=== PATIENT | female | born 2000 | race Caucasian/White ===

== ENCOUNTER 2024-12-05 18:28 | Emergency (ER) | payer OTHER, SELFPAY ==
[2024-12-05 18:31] VITALS: BP 127/90
[2024-12-05 21:14] VITALS: BMI 22.7
[2024-12-05 21:31] LABS: % Basophils 0.6 % (0-2); % Eosinophils 0.5 % (0-6); % Immature Granulocytes 0.2 % (0-0.5); % Lymphocytes 27.9 % (20.5-51.1); % Monocytes 5.8 % (1.7-9.3); Absolute Lymphocytes 1.7 10^3/uL (1.2-3.4); Absolute Monocytes 0.4 10^3/uL (0.1-0.6); Hematocrit 39.1 % (37.0-47.0); Hemoglobin 13.5 g/dL (12.0-16.0); Mean Corp Hgb Conc. 34.5 g/dL (33.0-37.0); Mean Corpuscular Volume 86.9 fL (81.0-99.0); Mean Platelet Volume 10.3 fL (7.4-10.4); Nucleated Red Blood Cells % 0 %; Platelet Count 232 10^3/uL (130-400); Red Cell Dist. Width 12.3 % (11.5-14.5); White Blood Cell Count 6.2 10^3/uL (4.8-10.8)
[2024-12-05 21:41] LABS: HCG, Serum Qualitative Screen Negative
[2024-12-05 21:44] LABS: ALT (SGPT) 14 U/L (0-35); AST (SGOT) 19 U/L (14-36); Albumin 4.2 g/dl (3.5-5.0); Alkaline Phosphatase 75 U/L (38-126); Blood Urea Nitrogen 8 mg/dl (7-17); Calcium 9.9 mg/dl (8.4-10.2); Carbon Dioxide 25 mmol/L (22-30); Chloride 101 mmol/L (98-107); Estimated Creatinine Clearance 123 ml/min; Glucose 113 mg/dl (70-99); Sodium 137 mmol/L (135-145); Total Bilirubin 0.7 mg/dl (0.2-1.3); Total Protein 6.4 g/dl (6.3-8.2); eGFR > 60.00
--- NOTE | 2024-12-05 21:45 | EDRN ---
Crisis in to see patient and offer resources
[2024-12-05 21:46] LABS: Urine Albumin Negative (Neg - Trace); Urine Bilirubin Negative (Negative); Urine Character Clear (Clear); Urine Color Yellow; Urine Glucose Negative (Negative); Urine Ketone Negative (Negative); Urine Leukocyte Negative (Negative); Urine Nitrite Negative (Negative); Urine Occult Blood 4+ (Negative); Urine Urobilinogen Negative (Neg - 1+)
[2024-12-05 21:55] LABS: Urine White Cell 0-2 /HPF (0-5)
[2024-12-05 21:56] LABS: Urine Bacteria Few (Negative)
--- NOTE | 2024-12-05 22:01 | ED.GENMED ---
History of Present Illness
General
Chief Complaint: Crisis Evaluation
Source: patient
Exam Limitations: none
Time Seen by Provider: 12/05/24 20:49
Nursing documentation reviewed up to this point in time: agreed with
History of Present Illness
History of Present Illness:
Patient states she has been dealing with anxiety and depression for many years. She is prescribed Quetiapine, lamotigine, and duloxetine. SHe stopped taking lamotigine and duloxetine a few weeks ago. SHe does not know why she decided to stop
taking her medications. States she has extreme mood swings throughout the day. Symptoms became worse after delivering her child approx 6 mos ago. States baby has special needs and she is staying home to care for him. Came to ED for crisis consult.
She denies SI, HI.
Past History
Past History
ED Past Medical History: Psychiatric (anxiety and depression)
Review of Systems
Review of Systems
Allergies reviewed?: Yes
All Other Systems: ROS reviewed and negative except as documented in HPI and ROS
Constitutional: Reports no symptoms
EENT: Reports no symptoms
Respiratory: Reports no symptoms
Cardiac: Reports no symptoms
ABD/GI: Reports no symptoms
: Reports no symptoms
Musculoskeletal: Reports no symptoms
Skin: Reports no symptoms
Neurological: Reports no symptoms
Psychiatric: Reports depression and anxiety
Phy Exam
General Physical Exam
General Presentation: well appearing and no apparent distress
General age: appears stated age
General Skin: warm and dry
General Habitus: normal
General Mental: alert
Neurological Exam
Neurological Exam: alert, oriented x3, CN II-XII intact, no motor deficits, no sensory deficits, speech normal and normal gait
Musculoskeletal Exam
Musculoskeletal Exam: full ROM and neuro vasc intact
Skin Exam
Skin Exam: normal color, warm/dry and no rash
Psychiatric Exam
Psychiatric Exam: normal mood/affect
Course
Orders/Labs/Results
Orders:
Orders
12/05/24 21:00
Crisis Consult Urgent
Reason for Consult: anxiety/depression
Test Result ONCE
12/05/24 21:10
Complete Blood Count/With Diff Urgent
Comprehensive Metabolic Panel Urgent
HCG, Serum Qualitative Screen Urgent
TSH Reflex To Free T4 Urgent
Urinalysis Reflex To Culture Urgent
Date Specimen was Collected: 12/05/24
Time Specimen was Collected: 21:03
Urine Microscopic Reflex Cult Urgent
Abnormal Lab Results
12/05/24
21:10
Glucose 113 H mg/dl
(70-99)
Ur Occult Blood Reflex 4+ A
(Negative)
Urine RBC 11-15 A /HPF
(0-2)
Urine Bacteria (Reflex) Few A
(Negative)
12/05/24 21:10
12/05/24 21:10
Vital Signs
Initial and Last Documented VS:
Initial Vital Signs
Temp Pulse Resp BP Pulse Ox
98.5 F 109 20 127/90 97
12/05/24 18:31 12/05/24 18:31 12/05/24 18:31 12/05/24 18:31 12/05/24 18:31
Last Documented Vital Signs
Temp Pulse Resp BP Pulse Ox
98.5 F 109 20 127/90 97
12/05/24 18:31 12/05/24 18:31 12/05/24 18:31 12/05/24 18:31 12/05/24 18:31
*Critical Care Note
Total Time (30-74mins, 75-104mins- exclusive of procedures): Not Applicable
Update Note
Update Note:
Patient to ED for crisis consult for ongoing anxiety and depression. Labs reviewed, no concerning findings. VSS. She denies SI, HI. Given referrals by crisis. SHe has been cleared by crisis for disharge.
ED Attending Note
-
Portions of this chart may have been created with voice recognition software.� Occasional wrong word or��sound alike� substitutions may have occurred due to the inherent limitations of voice recognition software.
Discharge Plan
Departure
Patient Disposition: Home (Routine Discharge)
Date of Disposition: 12/05/24
Time of Disposition: 22:00
Patient with high blood pressure during this ER visit?: No
Condition: Good
Covid-19: Not Applicable
Discharge Problem:
Anxiety and depression
Instructions: Depression, Adult (DC), Anxiety, Adult (DC)
Referrals:
Piotr Neville, DO [Family Provider] - Tomorrow
Interventions
Interventions:
*Risk Screen - Suicide Last Done: 12/05/24 18:29
*General Assessment Last Done: 12/05/24 18:31
*Neglect/Abuse Screening Last Done: 12/05/24 21:14
*ED- Fall Risk Assessment Last Done: 12/05/24 21:14
ED-Psychological Assessment Last Done: 12/05/24 21:14
Discharge Date and Time
Print Language: NEPALI
[2024-12-05 22:16] LABS: TSH Reflex To Free T4 < 0.02 uIU/ml (0.47-4.68)
[2024-12-05 23:00] LABS: Free T4 2.38 ng/dl (0.78-2.19)
== END 2024-12-05 22:45 | disposition home or self-care (01) ==
LOC: EMR 18:28
PROVIDERS: Nurse Practitioner; EMERGENCY PHYSICIAN Emergency Medicine; FAMILY PHYSICIAN Family Medicine
DX: F41.8 Other specified anxiety disorders (principal); Z79.899 Other long term (current) drug therapy
CPT/HCPCS: 99283; 80053; 81003; 81015; 84439; 84443; 84703; 85025

== ENCOUNTER 2025-02-21 17:03 | Emergency (ER) | payer MEDICARE, OTHER, SELFPAY ==
[2025-02-21 17:09] VITALS: BP 112/79
[2025-02-21 17:21] VITALS: BP 118/86
[2025-02-21 18:00] VITALS: BP 106/72
[2025-02-21 19:00] VITALS: BP 101/72
--- NOTE | 2025-02-21 19:33 | ED.GENMED ---
History of Present Illness
General
Chief Complaint: Anxiety
Source: patient
Time Seen by Provider: 02/21/25 17:25
History of Present Illness
History of Present Illness:
Note:
CHIEF COMPLAINT(S)
Persistent vomiting and chest tightness associated with anxiety symptoms.
HISTORY OF PRESENT ILLNESS
The patient is a 24-year-old female with a history of significant anxiety and panic attacks, presenting with recurrent episodes of vomiting, chest tightness, and difficulty breathing, which have been ongoing intermittently over the past five to six
years, unchanged from today's symptoms. She describes the episodes with quotes such as feeling like her body is shaking when it is not, and her chest and stomach tightening painfully. These episodes can last up to eight hours. The symptoms subsided
temporarily during her recent , but have recurred since. She experienced her first severe panic attack in 2020. The patient describes a fear of these intense episodes recurring and expresses difficulty managing these symptoms, especially at
night. She has attempted various non-pharmacologic strategies at home without significant relief. The patient does note that she had a cardiac ablation about 13 years ago for SVT and has not had any complications since. She does note experiencing
palpitations at time of the panic attacks but states she is not sure if the palpitations start first or occur after the anxiety/panic attack. Also of note, patient currently on her menstrual, states she does seem to notice symptoms seem to worsen
around the time of her menstrual period
MEDICATIONS
The patient is currently taking Propranolol daily (once in the morning and once at night) for heart symptoms. Quetiapine is used sporadically for panic attacks.
SOCIAL HISTORY
The patient reports daily marijuana use, noting that it sometimes causes her heart to race but does not exacerbate other symptoms. She denies the use of other substances or illicit drugs.
Past History
Past History
ED Past Medical History: Psychiatric (anxiety and depression)
ED Past Surgical History: Cardiac
Social History
Tobacco: Non-smoker
Alcohol: Occasional
Drug: Marijuana
Personal: Single
Living: with family
Review of Systems
Review of Systems
All Other Systems: ROS reviewed and negative except as documented in HPI and ROS
Phy Exam
Physical Exam
Physical Exam:
GENERAL: Alert , in no apparent distress
EYE: conjunctiva clear
NECK: Supple, no significant adenopathy.
ENT: o/p clr, mmm.
CARDIAC: Regular rate and rhythm
LUNGS: Clear breath sounds bilaterally, no acute respiratory distress, no wheezes/rales/rhonchi
NEUROLOGICAL: Alert and oriented
SKIN: Warm and dry, skin intact.
MUSCULOSKELETAL: well perfused.
PSYCH: Normal and appropriate interaction.
Scores
Heart Failure Risk
Heart Failure Risk Score: Not Applicable
Heart Score for Chest Pain Patients
STEMI patient?: Not applicable
Withdrawal Assessment of Alcohol
Withdrawal Assessment Completed?: Not applicable
Course
Orders/Labs/Results
Orders:
Orders
02/21/25 17:43
Crisis Consult Urgent
Reason for Consult: increased anxiety/panic attacks
Vital Signs
Initial and Last Documented VS:
Initial Vital Signs
Temp Pulse Resp BP Pulse Ox
98.1 F 88 16 112/79 98
02/21/25 17:09 02/21/25 17:09 02/21/25 17:09 02/21/25 17:09 02/21/25 17:09
Last Documented Vital Signs
Temp Pulse Resp BP Pulse Ox
98.1 F 68 17 101/72 97
02/21/25 17:09 02/21/25 19:00 02/21/25 19:00 02/21/25 19:00 02/21/25 19:00
MDM/Problems Addressed
Differential Diagnosis Includes:
The Differential Diagnosis includes, in no particular order and is not limited to:
1. Panic Disorder
2. Cardiac Arrhythmia
3. Generalized Anxiety Disorder
4. Premenstrual Dysphoric Disorder
5. Substance-Induced Anxiety Disorder
6. Cannabinoid Hyperemesis Syndrome
7. Hyperthyroidism
8. Gastroesophageal Reflux Disease (GERD)
9. Hormonal Imbalance
10. Anxiety
MDM/Problems Addressed:
1. Referral to mental health services, specifically the [facility], for evaluation and support, focusing on anxiety and potential triggers.
2. Consider cardiology follow-up to evaluate the need for monitoring heart rhythms during anxiety episodes and to determine if SVT contributes to symptoms.
3. Discussed the potential correlation between menstrual cycles and increased anxiety symptoms, and suggest tracking symptoms in relation to her cycle.
4. Advise continuing current beta-ayaka regimen without escalating doses until further evaluation by primary care or a psychiatrist.
5. Encourage finding a consistent mental health provider for medication management and therapeutic support.
Chronic conditions affecting care: Psychiatric illness
*Pulse Oximetry
Patient hypoxic: no
*Critical Care Note
Total Time (30-74mins, 75-104mins- exclusive of procedures): Not Applicable
Patient Management
Escalation/DeEscalation of care consider admission/obs:
Patient seen by [facility] and deemed stable for outpatient follow-up. Patient is denying any SI, HI, hallucinations. No concern for patient being a danger to herself or others. Patient aware of return precautions to the ER. Stable for
discharge home.
ED Attending Note
-
Portions of this chart may have been created with voice recognition software.� Occasional wrong word or��sound alike� substitutions may have occurred due to the inherent limitations of voice recognition software.
Discharge Plan
Departure
Patient Disposition: Home (Routine Discharge)
Date of Disposition: 02/21/25
Time of Disposition: 19:33
Patient with high blood pressure during this ER visit?: No
Discharge Problem:
Acute anxiety
Instructions: Anxiety, Adult (DC)
Referrals:
NONE,* [Family Provider, Internal Medicine]
Interventions
Interventions:
*Risk Screen - Suicide Last Done: 02/21/25 17:09
*General Assessment Last Done: 02/21/25 18:17
*Neglect/Abuse Screening Last Done: 02/21/25 17:09
*ED COVID-19 Vaccine History Last Done: 02/21/25 18:17
*Nursing Disposition Last Done: 02/21/25 20:03
ED-Psychological Assessment Last Done: 02/21/25 18:17
Discharge Date and Time
Discharge Date/Time: 02/21/25 20:03
Print Language: TOGOLESE
== END 2025-02-21 20:03 | disposition home or self-care (01) ==
LOC: EMR 17:03
PROVIDERS: EMERGENCY PHYSICIAN Emergency Medicine
DX: F41.9 Anxiety disorder, unspecified (principal); R11.10 Vomiting, unspecified; F12.90 Cannabis use, unspecified, uncomplicated
CPT/HCPCS: 99283

== ENCOUNTER 2025-02-24 11:00 | Emergency (ER) | payer MEDICARE, OTHER, SELFPAY ==
[2025-02-24] VITALS (7 sets, daily range): BP systolic 92–134; BP diastolic 60–95; BMI 20.8
--- NOTE | 2025-02-24 12:22 | ED.GENMED ---
History of Present Illness
General
Chief Complaint: Abdominal Pain
Time Seen by Provider: 02/24/25 12:22
History of Present Illness
History of Present Illness:
TIME OF INITIAL EVALUATION
- 12:25 PM
REVIEW OF OLD RECORDS
- The patient has a history of SVT on beta-ayaka, anxiety, had cardiac ablation at age 11. The patient was seen here with anxiety 3 days ago and was also seen by crisis and their note indicates that the patient has been in therapy related to
anxiety
Note:
CHIEF COMPLAINT(S)
Abdominal pain and severe panic attacks.
HISTORY OF PRESENT ILLNESS
The patient is a 24-year-old female presenting with severe panic attacks and abdominal pain. The abdominal pain began leading to panic attacks. The pain persists, characterized as generalized but with noted tenderness when palpated. The patient
reports experiencing similar episodes previously. She expresses significant anxiety, reporting a fast heart rate and severe fear regarding returning home due to the possibility of another panic attack. Her history includes therapy without sufficient
alleviation and intermittent use of medications such as quetiapine and lamotrigine for anxiety. She admits to not taking these medications regularly, citing issues with vomiting the medication and lapses in psychiatric follow-up.
ADDITIONAL HISTORY OBTAINED FROM SOURCES OTHER THAN THE PATIENT
According to the crisis evaluation from the other day, the patient received therapy but continues to struggle with anxiety symptoms.
MEDICATIONS
Quetiapine, previously used 50 mg as needed.
Lamotrigine for anxiety, not taken daily.
Previous use of a short course of medications with inadequate adherence.
PHYSICAL EXAM
- General: Well appearing in no distress
- HEENT: Moist oral mucosa
- Cardiovascular: No murmurs, tachycardic heart rate, regular rhythm, No chest wall tenderness
- Pulmonary: No respiratory distress, breath sounds are clear and equal
- Abdomen: Soft with no peritoneal signs, left lower quadrant tenderness
- Neurologic: Excellent strength all extremities, no coordination deficits
- Psychiatric: Appears very anxious
- Extremities: Nontender, no edema, moves all extremities equally
- Skin: No rash, no lesions
PLAN
- Obtain an ultrasound of the abdomen.
- Provide IV fluids.
- Administer ondansetron for nausea.
- Administer lorazepam for acute anxiety management.
- Administer ketorolac for pain management.
- Coordinate with psychiatric services to facilitate follow-up care.
- Collect a urine sample for analysis.
DIFFERENTIAL DIAGNOSIS
The Differential Diagnosis includes, in no particular order and is not limited to:
- Ovarian cyst
- Anxiety disorder with panic attacks
- Gastrointestinal distress or infection
- Psychological stress reaction
- Urinary tract infection
- Endometriosis
- Irritable bowel syndrome
- Peptic ulcer disease
- Gallbladder disease
- Pelvic inflammatory disease
RADIOLOGY
- Ultrasound imaging of the pelvis has been ordered however on reassessment the patient's pain and tenderness virtually resolved after Toradol and benzos were given and we agreed to hold off on ultrasound imaging
EKG
- Not applicable
LABS
- CBC and chemistries unremarkable, urinalysis negative for infection
UPDATE
- I asked Dr. Henderson to evaluate the patient and he did. Will give short course of benzos and propranolol at psychiatrist recommendation. The patient tells me she already takes propranolol as she thinks 80 mg twice daily kind of dosing
SUMMARY OF ENCOUNTER
The patient presented with abdominal pain and severe panic attacks, characterized by high heart rate and anxiety-related symptoms such as hyperventilation and tingling. An ultrasound was considered but ultimately not performed due to the absence of
significant findings upon reassessment.
DISPOSITION
The patient was discharged with instructions for outpatient management.
ASSESSMENT
The patients symptoms were consistent with anxiety-related hyperventilation and possible ovarian cyst, though the latter was less likely given the improvement in tenderness and the decision against performing an ultrasound.
EMERGENCY TREATMENTS ADMINISTERED
The patient was given lorazepam and ketorolac for acute anxiety and pain management, respectively.
MANAGEMENT OF THE PATIENTS CARE WAS DISCUSSED WITH
Coordination with psychiatric services was indicated for follow-up care.
REASSESSMENT
Upon re-evaluation, tenderness in the abdominal area had significantly decreased, which led to the decision to defer the ultrasound.
PLAN
Continue the management with propranolol and follow up with the patients psychiatrist. Instructions to manage anxiety with sparing use of medication provided.
INDEPENDENT REVIEW OF LABS AND INTERPRETATION OF TESTS
My independent review of the complete blood count (CBC) shows a normal white blood cell count.
MEDICATION RECONCILIATION
Propranolol to be continued for heart rate management, and a seven-day supply of a low dose of Xanax was prescribed for anxiety, with caution regarding its addictive potential.
MEDICAL DECISION MAKING
1. Number & Complexity of Problems: Chronic conditions affecting care included anxiety disorder with panic attacks and a history of SVT with previous ablation. Differential diagnoses considered were anxiety-related hyperventilation and ovarian cyst.
2. Data Reviewed:
- Category 1: Lab review of CBC indicating normal white blood cell count.
- Category 3: Coordination with psychiatric services for follow-up care.
3. Risk: Consideration of outpatient management was appropriate based on stable vitals and improvement of symptoms with treatment.
DIAGNOSIS
Anxiety disorder with panic attacks; history of SVT; possible ovarian cyst not confirmed.
PATHOLOGIES TO CONSIDER
Consideration given to potential ovarian cyst and anxiety-related events; however, more serious abdominal pathologies were ruled out based on reassessment and normal lab results.
Past History
Past History
ED Past Medical History: Psychiatric (anxiety and depression)
ED Past Surgical History: Cardiac
Social History
Tobacco: Non-smoker
Alcohol: Occasional
Drug: Marijuana
Personal: Single
Living: with family
Phy Exam
Physical Exam
Physical Exam:
See HPI
Course
Orders/Labs/Results
Orders:
Orders
02/24/25 12:54
US Pelvis Only (non-obstetric) Urgent
Comment:
Reason For Exam: lower pain more on left
02/24/25 12:55
Ketorolac [Toradol] 15 mg IV NOW STA
Lorazepam [Ativan] 1 mg IV NOW STA
Ondansetron Injectable [Zofran] 4 mg IV NOW STA
Test Result ONCE
02/24/25 13:06
Complete Blood Count/With Diff Urgent
Comprehensive Metabolic Panel Urgent
HCG, Serum Qualitative Screen Urgent
Lipase Urgent
Urinalysis Reflex To Culture Urgent
Date Specimen was Collected: 02/24/25
Time Specimen was Collected: 13:05
02/24/25 15:23
0.9% Sodium Chloride 1000 ml [Nss] 1,000 ml IV BOLUS
Abnormal Lab Results
02/24/25
13:06
MPV 11.2 H fL
(7.4-10.4)
Absolute Lymphs (auto) 1.1 L 10^3/uL
(1.2-3.4)
Chloride 110 H mmol/L
(98-107)
BUN 6 L mg/dl
(7-17)
02/24/25 13:06
02/24/25 13:06
Vital Signs
Initial and Last Documented VS:
Initial Vital Signs
Temp Pulse Resp BP Pulse Ox
36.6 C 99 18 117/95 99
02/24/25 11:11 02/24/25 11:11 02/24/25 11:11 02/24/25 11:11 02/24/25 11:11
Last Documented Vital Signs
Temp Pulse Resp BP Pulse Ox
36.6 C 85 21 92/63 95
02/24/25 11:11 02/24/25 15:00 02/24/25 15:00 02/24/25 15:00 02/24/25 15:00
*Pulse Oximetry
SaO2: 97
Oxygen Mode of Delivery: Room air
Patient hypoxic: no
*Occupational Health Technician Interpretation
Rate: tachycardiac
Interpretation: abnormal
Heart Rate: 122
Rhythm: sinus
*Critical Care Note
Total Time (30-74mins, 75-104mins- exclusive of procedures): Not Applicable
ED Attending Note
-
Portions of this chart may have been created with voice recognition software.� Occasional wrong word or��sound alike� substitutions may have occurred due to the inherent limitations of voice recognition software.
Discharge Plan
Departure
Patient with high blood pressure during this ER visit?: Yes
Instructions: Anxiety in adults - ED discharge instructions, Abdominal Pain
Prescriptions:
New
alprazolam [Xanax] 0.5 mg tablet
0.5 mg PO DAILY PRN (Reason: anxiety) Qty: 7 0RF
propranolol 40 mg tablet
40 mg PO BID Qty: 60 0RF
Referrals:
NONE,* [Family Provider, Internal Medicine]
Interventions
Interventions:
*Risk Screen - Suicide Last Done: 02/24/25 11:29
*General Assessment Last Done: 02/24/25 11:11
*Neglect/Abuse Screening Last Done: 02/24/25 11:11
*ED- Fall Risk Assessment Last Done: 02/24/25 11:29
*ED COVID-19 Vaccine History Last Done: 02/24/25 11:11
CJ-Xkojwh-Nlljyuwhbx Assessment Last Done: 02/24/25 11:29
Discharge Date and Time
Print Language: [place] R[place]
[2025-02-24] MEDS: ZOFRAN 4 MG IV (13:09)
[2025-02-24] MEDS: ATIVAN 1 MG IV (13:10)
[2025-02-24] MEDS: TORADOL 15 MG IV (13:10)
[2025-02-24 13:22] LABS: % Basophils 0.4 % (0-2); % Eosinophils 0.6 % (0-6); % Immature Granulocytes 0.2 % (0-0.5); % Lymphocytes 21.8 % (20.5-51.1); % Monocytes 6.7 % (1.7-9.3); % Neutrophils 70.3 % (42.2-75.2); Absolute Lymphocytes 1.1 10^3/uL (1.2-3.4); Absolute Monocytes 0.4 10^3/uL (0.1-0.6); Absolute Neutrophils 3.7 10^3/uL (1.4-6.5); Hematocrit 39.7 % (37.0-47.0); Hemoglobin 13.6 g/dL (12.0-16.0); Mean Corp Hgb Conc. 34.3 g/dL (33.0-37.0); Mean Corpuscular Hgb 29.4 pg (27.0-31.0); Mean Corpuscular Volume 85.9 fL (81.0-99.0); Mean Platelet Volume 11.2 fL (7.4-10.4); Nucleated Red Blood Cells % 0 %; Platelet Count 224 10^3/uL (130-400); Red Blood Cell Count 4.62 10^6/uL (4.20-5.40); Red Cell Dist. Width 13.5 % (11.5-14.5); White Blood Cell Count 5.2 10^3/uL (4.8-10.8)
[2025-02-24 13:47] LABS: Urine Albumin Negative (Neg - Trace); Urine Bilirubin Negative (Negative); Urine Character Clear (Clear); Urine Color Yellow; Urine Glucose Negative (Negative); Urine Ketone Negative (Negative); Urine Leukocyte Negative (Negative); Urine Nitrite Negative (Negative); Urine Occult Blood Negative (Negative); Urine Specific Gravity 1.005 (<1.030); Urine Urobilinogen Negative (Neg - 1+)
[2025-02-24 13:48] LABS: HCG, Serum Qualitative Screen Negative
[2025-02-24 13:57] LABS: ALT (SGPT) 13 U/L (0-35); AST (SGOT) 21 U/L (14-36); Albumin 4.7 g/dl (3.5-5.0); Alkaline Phosphatase 72 U/L (38-126); Blood Urea Nitrogen 6 mg/dl (7-17); Calcium 10.1 mg/dl (8.4-10.2); Carbon Dioxide 24 mmol/L (22-30); Chloride 110 mmol/L (98-107); Estimated Creatinine Clearance 123 ml/min; Glucose 99 mg/dl (70-99); Lipase 34 U/L (23-300); Potassium 3.7 mmol/L (3.5-5.1); Sodium 142 mmol/L (135-145); Total Bilirubin 0.7 mg/dl (0.2-1.3); Total Protein 7.1 g/dl (6.3-8.2); eGFR > 60.00
--- NOTE | 2025-02-24 15:36 | CS.PSYCHR ---
Consult Summary - Psychiatry
-
Pt is a 24 yo female with history of anxiety/panic, who presented with increased heart rate, c/o shaky, sweating, dry heaves, stomach pain. Pt was seen by Crisis 2 days ago with similar symptoms and referred to outpatient treatment. Pt states she
is seeing a therapist [facility]. She reports she was prescribed Seroquel, Lamictal, Cymbalta, Propranolol, but has not had them in a while. She is in contact with a new psychiatrist, is in the process of getting the first appointment. Pt c/o
constant worry, stress, fear of the next panic attack, reports they can last 6 hours. Pt denies severe depression, denies SI.
Psych Hx: denies hx of inpatient tx; previous therapy and medication mgt, interrupted due to change of insurance. Previously on Cymbalta, Seroquel, Lamictal, Propranolol (low-dose), could not give specific doses
SH: unremarkable, denies substance use
MSE: alert, calm, resting on her side, making good eye contact. Mood mildly dysphoric, affect appropriate. No signs of psychosis. Denies SI. Insight fair
Imp: Panic d/o; secondary anxiety/fear of recurrence of panic symptoms
Rec: Outpatient therapy and medication mgt. Pt reportedly in the process of scheduling with a new psychiatrist.
Would give limited supply of prn Ativan and low-dose prn Propranolol (10 to 20 mg) to manage symptoms until pt able to see outpatient psychiatrist
[2025-02-24] MEDS: NSS 1000 IV (15:57)
== END 2025-02-24 16:55 | disposition home or self-care (01) ==
LOC: EMR 11:00
PROVIDERS: EMERGENCY PHYSICIAN Emergency Medicine
DX: F41.9 Anxiety disorder, unspecified (principal); R10.9 Unspecified abdominal pain
CPT/HCPCS: 99284; 96374; 96375 ×2; 80053; 81003; 83690; 84703; 85025

== ENCOUNTER 2025-07-28 17:17 | Emergency (ER) | payer MEDICARE, OTHER, SELFPAY ==
[2025-07-28 17:20] VITALS: BP 118/82
--- NOTE | 2025-07-28 19:59 | ED.GENMED ---
History of Present Illness
General
Chief Complaint: Anxiety
Time Seen by Provider: 07/28/25 19:45
History of Present Illness
History of Present Illness:
Patient is a 25-year-old woman with history of anxiety panic attacks presenting to the emergency department worsening anxiety. Patient states for the past 2 to 3 weeks her anxiety has been significantly worse. Has been dealing with this for many
years. She has had multiple panic attacks as well the past 4 to 5 days. They are her usual. She develops nausea chest tightness palpitations and a feeling of ice in her veins. She is feels that she has been all over the place and cannot calm
down. She did recent start seeing an psychiatrist. They did switch her fluoxetine to Lexapro. She is also on BuSpar and hydroxyzine. Patient does state that has been taking hydroxyzine without relief. She does state that she has had [facility] last week who recommended IOP evaluation for Thursday. She denies any SI or HI. She also notes that she was recently taken off her propranolol. She does have history of palpitations however does not feel as if they have been worse
since discontinuing the propranolol. Otherwise patient denies any other complaints at this chest pain shortness of breath vomiting abdominal pain diarrhea thyroid abnormalities. Denies any alcohol or drug use. At this time patient is requesting
another crisis evaluation and possible medical management.
Past History
Past History
ED Past Medical History: Psychiatric (anxiety and depression)
ED Past Surgical History: Cardiac
Social History
Tobacco: Non-smoker
Alcohol: Occasional
Drug: Marijuana
Personal: Single
Living: with family
Phy Exam
Physical Exam
Physical Exam:
GENERAL: in no acute distress
HEENT: normocephalic, extraocular movements intact, moist oral mucosa
NECK: normal inspection
RESPIRATORY: no respiratory distress, clear to auscultation bilaterally
CARDIOVASCULAR: regular rate and rhythm
ABDOMEN/: soft, non-distended, non-tender to palpation, no rebound or guarding
EXTREMITIES: non-tender, no edema/swelling
NEUROLOGIC: awake and alert, moves all extremities
Psych: Alert and oriented x 3, anxious, speech normal not pressured, coherent thought process, not tangential, not currently suicidal or homicidal, cooperative and communicating, no active auditory or visual hallucinations, good insight and judgement
SKIN: warm
Course
Orders/Labs/Results
Orders:
Orders
07/28/25 19:56
Crisis Consult Urgent
Reason for Consult: anxiety
Vital Signs
Initial and Last Documented VS:
Initial Vital Signs
Temp Pulse Resp BP Pulse Ox
98.2 F 125 18 118/82 97
07/28/25 17:20 07/28/25 17:20 07/28/25 17:20 07/28/25 17:20 07/28/25 17:20
Last Documented Vital Signs
Temp Pulse Resp BP Pulse Ox
98.2 F 125 18 118/82 97
07/28/25 17:20 07/28/25 17:20 07/28/25 17:20 07/28/25 17:20 07/28/25 20:06
MDM/Problems Addressed
Differential Diagnosis Includes:
Patient is a 25-year-old woman with history of anxiety and panic attacks presenting to the emergency department for worsening anxiety and panic attacks. On arrival vitals are unremarkable. Exam is reassuring and patient appears comfortable at this
time. Patient is not a harm to herself or others. She does not meet any involuntary criteria. Will have crisis evaluate patient for further recommendations. Patient did ask if we would give her additional rescue medications such as benzos.
However I did advise patient that she has a psychiatrist who is managing her medications so it is not appropriate for me to give additional medications. Per chart review does appear the patient was given a short benzo prescription back in February
though that was after a psychiatrist evaluated her here and when she did not have her own psychiatrist.
Crisis did evaluate patient. She refused a full evaluation by them. She does state that she wants medications such as benzodiazepines until her IOP evaluation in 2 days. Crisis did inform patient that she will need to reach to her psychiatrist
for medication adjustments. Crisis also gave her additional resources for a different psychiatrist to reach out to. Patient again then stated that she will be coming back to the emergency department until she gets medications.
I again updated patient that she will need to reach out to her psychiatrist for additional medication adjustments. She did have 4 different medications recently adjusted. Will discharge patient at this time.
*Pulse Oximetry
SaO2: 97
Oxygen Mode of Delivery: Room air
Patient hypoxic: no
*Critical Care Note
Total Time (30-74mins, 75-104mins- exclusive of procedures): Not Applicable
ED Attending Note
-
Portions of this chart may have been created with voice recognition software.� Occasional wrong word or��sound alike� substitutions may have occurred due to the inherent limitations of voice recognition software.
Discharge Plan
Departure
Patient Disposition: Home (Routine Discharge)
Date of Disposition: 07/28/25
Time of Disposition: 20:39
Patient with high blood pressure during this ER visit?: No
Discharge Problem:
Anxiety
Instructions: Anxiety, Adult (DC)
Prescriptions:
No Action
alprazolam [Xanax] 0.5 mg tablet
0.5 mg PO DAILY PRN (Reason: anxiety) Qty: 7 0RF
propranolol 40 mg tablet
40 mg PO BID Qty: 60 0RF
Referrals:
NONE,* [Family Provider, Internal Medicine]
Activity Restrictions/Additional Instructions:
Thank You for choosing [facility].
You were seen in the Emergency Department today. Please follow-up with your psychiatrist as discussed.
We would like for you to follow up with your primary care physician for further evaluation. If you experience fever, worsening of your symptoms, or develop any other new or concerning symptoms, please return to the Emergency Department immediately.
Please see the attached sheet for additional information.
Interventions
Interventions:
*Risk Screen - Suicide Last Done: 07/28/25 17:20
*General Assessment Last Done: 07/28/25 17:20
*Neglect/Abuse Screening Last Done: 07/28/25 17:20
*ED- Fall Risk Assessment Last Done: 07/28/25 18:40
*Nursing Disposition Last Done: 07/28/25 20:57
ED-Psychological Assessment Last Done: 07/28/25 18:40
Discharge Date and Time
Discharge Date/Time: 07/28/25 21:07
Print Language: ESTONIAN
== END 2025-07-28 21:07 | disposition home or self-care (01) ==
LOC: EMR 17:17
PROVIDERS: EMERGENCY PHYSICIAN Student in an Organized Health Care Education/Training Program
DX: F41.9 Anxiety disorder, unspecified (principal)
CPT/HCPCS: 99282